=== PATIENT | female | born 1950 | race African-American/Black ===

== ENCOUNTER 2016-06-09 20:06 | Emergency (ER) | payer OTHER ==
[~2016-06-09] VITALS: Ht 162.6 cm; Wt 72.7 kg
[~2016-06-09 20:06] MED LIST: ALPR0.5T8 PO; ASPI-891 PO; BENZ0.5T6 PO; DIGO125T PO; GABA-531 PO; GLIP5TAB11 PO; HYDR25 PO; LEVO100 PO; LITH300CRT PO; LORA10TA7 PO; PANT40TA25 PO; RISP3 PO; SERT100T12 PO; SIMV10TA6 PO; SOTA80 PO; VITAD1000 PO; ZOLP10 PO
[2016-06-09 20:13] VITALS: BP 150/100
[2016-06-09] MEDS ORDERED: HYDR-3965 PO (20:19)
== END 2016-06-09 20:56 | disposition left against medical advice (07) ==
LOC: EMS 20:08
DX: R53.1 Weakness (principal); I10 Essential (primary) hypertension; E78.00 Pure hypercholesterolemia, unspecified; E03.9 Hypothyroidism, unspecified; K21.9 Gastro-esophageal reflux disease without esophagitis; Z87.891 Personal history of nicotine dependence; Z53.21 Procedure and treatment not carried out due to patient leaving prior to being seen by health care provider

== ENCOUNTER → 2018-06-08 | Outpatient (CLI) | payer MEDICARE, MEDICAID ==
[~2018-06-08] MED LIST changes: -ALPR0.5T8 PO; +APIX5TAB PO; -ASPI-891 PO; +BENZ0.5T44 PO; -BENZ0.5T6 PO; -DIGO125T PO; -GABA-531 PO; -GLIP5TAB11 PO; -HYDR25 PO; -LEVO100 PO; +LEVO125 PO; -LITH300CRT PO; -LORA10TA7 PO; -RISP3 PO; -SOTA80 PO; -ZOLP10 PO
[2018-06-08 12:43] LABS: BASOPHILS % (AUTO) 1.1 % (0.0-2.0); EOSINOPHILS % (AUTO) 2.7 % (1.0-6.0); HEMATOCRIT 39.4 % (36-46); HEMOGLOBIN 13.2 g/dL (12.0-16.0); LYMPHOCYTES # (AUTO) 2.2 K/uL (1.0-4.8); LYMPHOCYTES % (AUTO) 39.1 % (22.0-44.0); MEAN CORPUSCULAR HEMOGLOBIN 33.1 pg (26.0-34.0); MEAN CORPUSCULAR HGB CONC 33.5 G/dL (31.0-37.0); MEAN CORPUSCULAR VOLUME 99 fL (80-100); MONOCYTES # (AUTO) 0.3 K/uL (0.1-1.0); MONOCYTES % (AUTO) 5.2 % (2.0-9.0); NEUTROPHILS % (AUTO) 51.9 % (40.0-70.0); PLATELET COUNT (AUTO) 154 K/uL (150-450); RED BLOOD CELL COUNT(AUTO) 3.98 MIL/uL (4.00-5.20); RED CELL DISTRIBUTION WIDTH 14.8 % (11.5-14.5)
[2018-06-08 13:03] LABS: HEMOGLOBIN A1C 5.5 % (4.5-6.2)
[2018-06-08 13:05] LABS: ALBUMIN 3.9 g/dL (3.4-5.0); BILIRUBIN,TOTAL 0.5 mg/dL (0.1-1.0); CALCIUM, TOTAL 9.5 mg/dL (8.8-10.5); CHOL/HDL RATIO 1.9 (3.9-5.7); CREATININE 1.7 mg/dL (0.60-1.30); FREE T4 (FREE THYROXINE) 0.68 ng/dL (0.76-1.46); MAGNESIUM 2.5 mg/dL (1.80-2.40); POTASSIUM 4.3 mmol/L (3.5-5.1); THYROID STIMULATING HORMONE 17.54 uIU/mL (0.36-3.74); TOTAL PROTEIN, SERUM 7.6 g/dL (6.4-8.2)
== END | disposition home or self-care (01) ==
LOC: LABPV 11:11
PROVIDERS: ATTEND Internal Medicine Cardiovascular Disease
DX: E11.9 Type 2 diabetes mellitus without complications (principal); I11.0 Hypertensive heart disease with heart failure; I50.9 Heart failure, unspecified; E55.9 Vitamin D deficiency, unspecified; D56.5 Hemoglobin E-beta thalassemia
CPT/HCPCS: 82306; 83036; 83735; 84439; 84443

== ENCOUNTER 2024-06-29 13:23 | Inpatient (IN) | payer MEDICAID, MEDICARE ==
[~2024-06-29] VITALS: Ht 160 cm; Wt 78.9 kg
[~2024-06-29 13:23] MED LIST changes: -BENZ0.5T44 PO; +BENZ0.5T52 PO; +CHOL100018 PO; +PANT-31 PO; -PANT40TA25 PO; +SERT-162 PO; -SERT100T12 PO; -SIMV10TA6 PO; +SIMV10TA97 PO; -VITAD1000 PO
[2024-06-29] MEDS ORDERED: FURO20TA5 PO (13:47)
[2024-06-29] MEDS ORDERED: TRAM50TA5 PO (13:47)
[2024-06-29] MEDS ORDERED: ATOR40TA28 PO (13:47)
[2024-06-29] MEDS ORDERED: AMLO-257 PO (13:47)
[2024-06-29] MEDS ORDERED: QUET25TA PO (13:47)
[2024-06-29] MEDS ORDERED: GABA-1181 PO (13:47)
[2024-06-29] MEDS ORDERED: POTA-206 PO (13:47)
[2024-06-29] MEDS ORDERED: TIZA-211 PO (13:47)
[2024-06-29 14:28] LABS: HEMOGLOBIN 12.4 g/dL (12.0-16.0); LYMPHOCYTES # (AUTO) 1.3 K/uL (1.0-4.8); LYMPHOCYTES % (AUTO) 21.5 % (22.0-44.0); MEAN CORPUSCULAR HGB CONC 33.5 G/dL (31.0-37.0); MEAN CORPUSCULAR VOLUME 107 fL (80-100); MONOCYTES # (AUTO) 0.6 K/uL (0.1-1.0); NEUTROPHILS % (AUTO) 65.5 % (40.0-70.0); PLATELET COUNT (AUTO) 168 K/uL (150-450); RED BLOOD CELL COUNT(AUTO) 3.45 MIL/uL (4.00-5.20); RED CELL DISTRIBUTION WIDTH 12.8 % (11.5-14.5); WHITE BLOOD COUNT (AUTO) 6.1 K/uL (4.5-11.0)
[2024-06-29 15:00] LABS: RBC MORPHOLOGY COMMENT ABNORMAL RBC MORPH
[2024-06-29 15:01] LABS: CALCIUM, TOTAL 9.2 mg/dL (8.8-10.5); CARBON DIOXIDE 33 mmol/L (22-29); CREATININE 2.31 mg/dL (0.60-1.30); GLOMERULAR FILTR. RATE CALC 25 mL/min (>60); GLUCOSE,RANDOM 162 mg/dL (70-110); UREA NITROGEN, BLOOD 26 mg/dL (7-18)
[2024-06-29 15:20] LABS: ALCOHOL, BLOOD (SERUM) < 3 mg/dL (0-10)
[2024-06-29 15:29] LABS: ANION GAP 2 mmol/L (8-16); CHLORIDE 97 mmol/L (98-107); POTASSIUM 4.8 mmol/L (3.5-5.1); SODIUM SERUM 132 mmol/L (136-145)
[2024-06-29 15:39] LABS: COVID AG,FIA SOURCE NPH
[2024-06-29 15:59] LABS: SARS-COV2 (COVID) ANTIGEN,FIA Negative (Negative)
[2024-06-29 17:27] LABS: APPEARANCE,URINE CLEAR (CLEAR); BILIRUBIN,URINE NEGATIVE (NEGATIVE); COLOR,URINE COLORLESS (YELLOW); GLUCOSE, URINE (UA) NEGATIVE (NEGATIVE); KETONES,URINE NEGATIVE (NEGATIVE); LEUKOCYTE ESTERASE ,URINE NEGATIVE (NEGATIVE); NITRATE,URINE NEGATIVE (NEGATIVE); OCCULT BLOOD,URINE NEGATIVE (NEGATIVE); PROTEIN,URINE NEGATIVE (NEGATIVE); SPECIFIC GRAVITIY, URINE 1.004 (1.003-1.030); UROBILINOGEN,URINE <=1.0 mg/dL (<=1.0)
[2024-06-29 17:34] LABS: AMPHET/METH SCREEN,URINE NEGATIVE (NEGATIVE); BARBITURATE SCREEN, URINE NEGATIVE (NEGATIVE); BENZODIAZEPINES SCREEN,URINE NEGATIVE (NEGATIVE); CANNABINOID SCREEN,URINE NEGATIVE (NEGATIVE); COCAINE SCREEN,URINE NEGATIVE (NEGATIVE); METHADONE SCREEN, URINE NEGATIVE (NEGATIVE); OPIATE SCREEN,URINE NEGATIVE (NEGATIVE); PHENCYCLIDINE SCREEN,URINE NEGATIVE (NEGATIVE)
[2024-06-29 17:35] LABS: ALCOHOL, URINE DRUG SCREEN NEGATIVE (NEGATIVE)
[2024-06-29] MEDS: TraMADol HCL 50 MG TABLET PO ONE (19:49)
[2024-06-29] MEDS: AmLODIPine BESYLATE 5 MG TABLET PO ONE (19:49)
[2024-06-30] MEDS: TraMADol HCL 50 MG TABLET PO ONE (01:10)
[2024-06-30] MEDS ORDERED: FURO40TA5 PO (03:50)
[2024-06-30 05:48] LABS: HEMOGLOBIN A1C 5.6 % (3.8-5.6)
[2024-06-30 05:53] LABS: CHOL/HDL RATIO 1.6 (3.9-5.7)
[2024-06-30] MEDS: QUEtiapine FUMARATE 100 MG TABLET PO PRN (14:28)
[2024-06-30] MEDS: LORazepam 2 MG TABLET PO PRN (14:28)
[2024-06-30] MEDS: ZOLPIDEM TARTRATE 10 MG TABLET PO PRN (23:53)
[2024-07-01] MEDS: ACETAMINOPHEN 500 MG TABLET PO ONE (07:02)
[2024-07-01 09:18] VITALS: O2SAT 98
[2024-07-01 16:38] VITALS: BP 169/100; PULSE 66; RESP 18; TEMP 98; O2SAT 95
[2024-07-01 21:53] VITALS: RESP 17; TEMP 97.5
[2024-07-02] MEDS ORDERED: CloNIDine HCL 0.1 MG TABLET PO PRN
[2024-07-02] MEDS ORDERED: DiphenhydrAMINE HCL 25 MG CAPSULE PO PRN (05:00)
[2024-07-02] MEDS: LEVOTHYROXINE SODIUM 50 MCG TABLET PO SCH (07:00)
[2024-07-02] MEDS: GABAPENTIN 300 MG CAPSULE PO SCH (08:23)
[2024-07-02] MEDS: FUROSEMIDE 20 MG TABLET PO SCH (08:23)
[2024-07-02] MEDS: CARVEDILOL 25 MG TABLET PO SCH (08:23)
[2024-07-02] MEDS: ATORVASTATIN CALCIUM 40 MG TABLET PO SCH (08:23)
[2024-07-02] MEDS: MAGNESIUM OXIDE 400 MG TABLET PO SCH (08:23)
[2024-07-02] MEDS: CHOLECALCIFEROL (VIT D3) 1,000 UNITS [25 MCG] TABLET PO SCH (08:23)
[2024-07-02] MEDS: AmLODIPine BESYLATE 5 MG TABLET PO SCH (08:23)
[2024-07-02] MEDS: POTASSIUM CHLORIDE 20 MEQ ER TABLET PO SCH (08:23)
[2024-07-02] MEDS: TiZANidine HCL 4 MG TABLET PO SCH (08:27)
[2024-07-02 09:00] VITALS: BP 153/89; PULSE 84; RESP 18; TEMP 97.2; O2SAT 99
[2024-07-02 09:22] LABS: BASOPHILS % (AUTO) 0.8 % (0.0-2.0); EOSINOPHILS % (AUTO) 1.5 % (1.0-6.0); HEMATOCRIT 41.7 % (36-46); HEMOGLOBIN 13.9 g/dL (12.0-16.0); LYMPHOCYTES # (AUTO) 1.1 K/uL (1.0-4.8); LYMPHOCYTES % (AUTO) 15.9 % (22.0-44.0); MEAN CORPUSCULAR HEMOGLOBIN 35.7 pg (26.0-34.0); MEAN CORPUSCULAR HGB CONC 33.4 G/dL (31.0-37.0); MEAN CORPUSCULAR VOLUME 107 fL (80-100); MONOCYTES # (AUTO) 0.4 K/uL (0.1-1.0); MONOCYTES % (AUTO) 5.5 % (2.0-9.0); NEUTROPHILS # (AUTO) 5.4 K/uL (1.8-7.7); NEUTROPHILS % (AUTO) 76.3 % (40.0-70.0); PLATELET COUNT (AUTO) 202 K/uL (150-450); RED CELL DISTRIBUTION WIDTH 12.5 % (11.5-14.5); WHITE BLOOD COUNT (AUTO) 7.1 K/uL (4.5-11.0)
[2024-07-02 09:25] LABS: HEMOGLOBIN A1C 5.6 % (3.8-5.6)
[2024-07-02 09:48] LABS: BILIRUBIN,TOTAL 0.4 mg/dL (0.1-1.0); CALCIUM, TOTAL 9.6 mg/dL (8.8-10.5); CHOL/HDL RATIO 1.8 (3.9-5.7); THYROID STIMULATING HORMONE 2.38 uIU/mL (0.36-3.74); TOTAL PROTEIN, SERUM 7.4 g/dL (6.4-8.2)
[2024-07-02 09:54] LABS: ALBUMIN 3.6 g/dL (3.4-5.0)
[2024-07-02 10:02] LABS: RBC MORPHOLOGY COMMENT ABNORMAL RBC MORPH
[2024-07-02] MEDS ORDERED: RIVA15TA PO (12:22)
[2024-07-02] MEDS ORDERED: CHOL100062 PO (12:22)
[2024-07-02] MEDS ORDERED: LEVO112T7 PO (12:22)
[2024-07-02] MEDS ORDERED: SERT-439 PO (12:22)
[2024-07-02] MEDS ORDERED: ALBU18HF12 IH (12:22)
[2024-07-02] MEDS ORDERED: CARV6.2534 PO (12:22)
[2024-07-02] MEDS: SERTRALINE HCL 100 MG TABLET PO SCH (12:31)
[2024-07-02] MEDS: ACETAMINOPHEN 325 MG TABLET PO PRN (12:52)
[2024-07-02 12:54] VITALS: BP 149/80; PULSE 78; RESP 19; TEMP 98; O2SAT 98
[2024-07-02 15:52] VITALS: BP 159/79; PULSE 79; RESP 18; TEMP 98; O2SAT 99
[2024-07-02] MEDS: TraMADol HCL 50 MG TABLET PO PRN (15:52)
[2024-07-02] MEDS ORDERED: MAGNESIUM HYDROXIDE SUSPENSION 30 ML UDCUP PO PRN ×2 (17:00)
[2024-07-02] MEDS ORDERED: ONDANSETRON 4 MG TABLET PO PRN ×2 (17:00)
[2024-07-02] MEDS ORDERED: LOPERAMIDE HCL 2 MG CAPSULE PO PRN ×2 (17:00)
[2024-07-02] MEDS ORDERED: NICOTINE 14 MG/24 HOUR PATCH TD PRN ×2 (17:00)
[2024-07-02] MEDS ORDERED: PETROLATUM,WHITE 28 GM JELLY TP PRN (17:00)
[2024-07-02] MEDS ORDERED: GuaiFENesin/D-METHORPHAN [SUGAR-FREE] 200-20MG/10 ML SYRUP UDCUP PO PRN ×2 (17:00)
[2024-07-02] MEDS ORDERED: DOCUSATE SODIUM 100 MG CAPSULE PO PRN ×2 (17:00)
[2024-07-02] MEDS ORDERED: MAG HYDROX/ALUMINUM HYD/SIMETH ES 30 ML SUSPENSION UDCUP PO PRN ×2 (17:00)
[2024-07-02] MEDS ORDERED: ALBUTEROL SULFATE HFA 90 MCG/PUFF 8 GM INHALER IH PRN (17:00)
[2024-07-02] MEDS: RIVAROXABAN 15 MG TABLET PO SCH (18:10)
[2024-07-02] MEDS ORDERED: SIMVASTATIN 10 MG TABLET PO SCH (21:00)
[2024-07-02 21:01] VITALS: BP 113/61; PULSE 80; RESP 18; TEMP 97.4; O2SAT 100
[2024-07-03] MEDS: LEVOTHYROXINE SODIUM 112 MCG TABLET PO SCH (06:33)
[2024-07-03 08:20] LABS: HEMATOCRIT 42.3 % (36-46); HEMOGLOBIN 14.4 g/dL (12.0-16.0); LYMPHOCYTES # (AUTO) 1.3 K/uL (1.0-4.8); LYMPHOCYTES % (AUTO) 18.5 % (22.0-44.0); MEAN CORPUSCULAR HEMOGLOBIN 36.5 pg (26.0-34.0); MEAN CORPUSCULAR HGB CONC 34.1 G/dL (31.0-37.0); MEAN CORPUSCULAR VOLUME 107 fL (80-100); MONOCYTES # (AUTO) 0.4 K/uL (0.1-1.0); MONOCYTES % (AUTO) 5.3 % (2.0-9.0); NEUTROPHILS # (AUTO) 5.3 K/uL (1.8-7.7); NEUTROPHILS % (AUTO) 73.2 % (40.0-70.0); PLATELET COUNT (AUTO) 203 K/uL (150-450); RED BLOOD CELL COUNT(AUTO) 3.95 MIL/uL (4.00-5.20); RED CELL DISTRIBUTION WIDTH 12.7 % (11.5-14.5); WHITE BLOOD COUNT (AUTO) 7.3 K/uL (4.5-11.0)
[2024-07-03 08:30] LABS: HEMOGLOBIN A1C 5.7 % (3.8-5.6)
[2024-07-03 08:34] LABS: RBC MORPHOLOGY COMMENT ABNORMAL RBC MORPH
[2024-07-03 08:46] LABS: ALBUMIN 3.5 g/dL (3.4-5.0); BILIRUBIN,TOTAL 0.4 mg/dL (0.1-1.0); CALCIUM, TOTAL 9.5 mg/dL (8.8-10.5); CREATININE 2.14 mg/dL (0.60-1.30); POTASSIUM 4.9 mmol/L (3.5-5.1); THYROID STIMULATING HORMONE 3.35 uIU/mL (0.36-3.74); TOTAL PROTEIN, SERUM 7.3 g/dL (6.4-8.2)
[2024-07-03] MEDS: CARVEDILOL 6.25 MG TABLET PO SCH (09:45)
[2024-07-03] MEDS: POTASSIUM CHLORIDE 20 MEQ ER TABLET PO SCH (10:00)
[2024-07-03] MEDS: CHOLECALCIFEROL (VIT D3) 1,000 UNITS [25 MCG] TABLET PO SCH (10:01)
[2024-07-03] MEDS: ATORVASTATIN CALCIUM 40 MG TABLET PO SCH (10:01)
[2024-07-03 10:04] VITALS: BP 160/86; PULSE 82; RESP 18; TEMP 97.9; O2SAT 95
[2024-07-03 13:00] VITALS: BP 128/72; PULSE 78; RESP 18; TEMP 97; O2SAT 98
[2024-07-03 13:00] LABS: CHOL/HDL RATIO 1.9 (3.9-5.7)
[2024-07-03 14:07] VITALS: RESP 18
[2024-07-03] MEDS ORDERED: LORazepam 1 MG TABLET PO PRN (16:00)
[2024-07-03 16:40] VITALS: BP 144/84; PULSE 84; RESP 18; TEMP 97.2; O2SAT 97
[2024-07-03] MEDS: IBUPROFEN 400 MG TABLET PO PRN (16:51)
[2024-07-03 17:51] VITALS: RESP 18
[2024-07-03 20:00] VITALS: BP 121/78; PULSE 80; RESP 19; TEMP 97.9; O2SAT 95
[2024-07-04] MEDS: FUROSEMIDE 20 MG TABLET PO SCH (08:40)
[2024-07-04 09:00] VITALS: BP 118/77; PULSE 70; RESP 16; TEMP 98
[2024-07-04 21:00] VITALS: BP 127/77; PULSE 70; RESP 18; TEMP 97.5; O2SAT 96
[2024-07-05 08:54] VITALS: BP 113/64; PULSE 71; RESP 18; TEMP 97.8; O2SAT 96
[2024-07-05 12:33] VITALS: BP 113/64; PULSE 77; RESP 18; TEMP 97.8
[2024-07-05] MEDS: TraMADol HCL 50 MG TABLET PO PRN (12:33)
[2024-07-05 13:33] VITALS: BP 111/78; RESP 17; TEMP 98
[2024-07-05 21:33] VITALS: BP 106/52; PULSE 67; RESP 18; TEMP 97.7; O2SAT 95
[2024-07-05] MEDS: ACETAMINOPHEN 325 MG TABLET PO PRN (21:33)
[2024-07-05 22:21] VITALS: BP 106/52; PULSE 67; RESP 18; TEMP 97.7; O2SAT 95
[2024-07-06] MEDS ORDERED: RIVA15TA PO (05:15)
[2024-07-06] MEDS ORDERED: CHOL25TA4 PO (05:15)
[2024-07-06] MEDS ORDERED: CARV6.2534 PO (05:15)
[2024-07-06] MEDS ORDERED: LEVO112T4 PO (05:15)
[2024-07-06] MEDS ORDERED: POTA-206 PO (05:15)
[2024-07-06] MEDS ORDERED: AMLO-257 PO (05:15)
[2024-07-06] MEDS ORDERED: TIZA-211 PO (05:15)
[2024-07-06] MEDS ORDERED: GABA-1181 PO (05:15)
[2024-07-06] MEDS ORDERED: SERT-440 PO (05:15)
[2024-07-06] MEDS ORDERED: FURO20TA4 PO (05:15)
[2024-07-06] MEDS ORDERED: ATOR40TA71 PO (05:15)
[2024-07-06] MEDS ORDERED: QUET25TA PO (05:20)
[2024-07-06 07:45] LABS: CALCIUM, TOTAL 9.1 mg/dL (8.8-10.5); CREATININE 2.06 mg/dL (0.60-1.30); POTASSIUM 4.9 mmol/L (3.5-5.1)
[2024-07-06 11:44] VITALS: BP 144/71; PULSE 72; RESP 18; TEMP 97.6; O2SAT 98
== END 2024-07-06 12:15 | disposition home or self-care (01) | DRG 885 ==
LOC: EMS 13:47 → 3EX 07-01 15:59
PROVIDERS: ADMIT Psychiatry & Neurology Psychiatry; ATTEND Psychiatry & Neurology Psychiatry
PROC: GZHZZZZ Group Psychotherapy (ICD-10-PCS; principal; 2024-07-02)
PROC: GZ52ZZZ Individual Psychotherapy, Cognitive (ICD-10-PCS; 2024-07-04)
DX: F25.1 Schizoaffective disorder, depressive type (principal); N18.9 Chronic kidney disease, unspecified; E03.9 Hypothyroidism, unspecified; E11.22 Type 2 diabetes mellitus with diabetic chronic kidney disease; Z20.822 Contact with and (suspected) exposure to COVID-19; I12.9 Hypertensive chronic kidney disease with stage 1 through stage 4 chronic kidney disease, or unspecified chronic kidney disease; K21.9 Gastro-esophageal reflux disease without esophagitis; E78.00 Pure hypercholesterolemia, unspecified; J44.9 Chronic obstructive pulmonary disease, unspecified; Z88.2 Allergy status to sulfonamides; Z79.899 Other long term (current) drug therapy; Z87.891 Personal history of nicotine dependence; Z95.0 Presence of cardiac pacemaker
CPT/HCPCS: 80048; 80053; 80061; 80307; 81003; 83036; 84443; 85025; 99285; G0378; G0480